=== PATIENT | male | born 1970 | race Asian ===

== ENCOUNTER 2022-07-11 21:21 | Emergency (ER) | payer OTHER ==
[~2022-07-11] VITALS: Ht 182.9 cm; Wt 86.2 kg
[2022-07-11 22:15] LABS: POTASSIUM 3.9 mmol/L (3.6-5.2); SODIUM 142 mmol/L (136-145)
[2022-07-11 22:16] LABS: PLATELET COUNT 333 K/uL (142-355)
[2022-07-11 23:10] VITALS: BP 111/64; TEMP 98.8
== END 2022-07-11 23:10 | disposition home or self-care (01) ==
LOC: ED 21:21
PROVIDERS: Family Medicine
DX: S06.0X1A Concussion with loss of consciousness of 30 minutes or less, initial encounter (principal); R55 Syncope and collapse; Z48.02 Encounter for removal of sutures; S00.01XA Abrasion of scalp, initial encounter; X58.XXXA Exposure to other specified factors, initial encounter; Y92.89 Other specified places as the place of occurrence of the external cause
CPT/HCPCS: 36415; 80053; 80307; 81002; 85027; 93005; 99283